=== PATIENT | female | born 2000 | race Caucasian/White ===

== ENCOUNTER 2023-09-02 21:21 | Emergency (ER) | payer BC, SELFPAY ==
--- NOTE | 2023-09-02 21:15 | ECG_ITS ---
APPROVED REPORT Exam: Resting ECG HR:95 bpm ECG Measurements Heart Rate [address] 156 P 72 QRSd 88 QRS 90 QT 332 T 8 QTc 385 Conclusion SINUS RHYTHM NONSPECIFIC T-WAVE ABNORMALITY BORDERLINE ECG Electronically signed by : SHANE JERRY, 09/03/2023 16:37:43
[2023-09-02 21:22] VITALS: BP 113/75; PULSE 97; RESP 20; TEMP 36.9; O2SAT 99; BMI 18.9
--- NOTE | 2023-09-02 21:39 | XR_ITS ---
PROCEDURE INFORMATION: Exam: XR Chest Exam date and time: 09/02/2023 10:20 PM Age: 23 years old Clinical indication: Pain; Chest pressure; Additional info: Cp TECHNIQUE: Imaging protocol: Radiologic exam of the chest. Views: 1 view. COMPARISON: No relevant prior studies available. FINDINGS: Lungs: Unremarkable. No consolidation. Pleural spaces: Unremarkable. No pleural effusion. No pneumothorax. Heart/Mediastinum: Unremarkable. No cardiomegaly. Vasculature: Unremarkable. Bones/joints: Unremarkable. IMPRESSION: No acute findings.
--- NOTE | 2023-09-02 21:39 | CT_ITS ---
PROCEDURE INFORMATION: Exam: CT Abdomen And Pelvis With Contrast Exam date and time: 09/02/2023 10:29 PM Age: 23 years old Clinical indication: Abdominal pain; Additional info: Chronic b/l upper quadrant pain TECHNIQUE: Imaging protocol: Computed tomography of the abdomen and pelvis with contrast. Radiation optimization: All CT scans at this facility use at least one of these dose optimization techniques: automated exposure control; mA and/or kV adjustment per patient size (includes targeted exams where dose is matched to clinical indication); or iterative reconstruction. Contrast material: ISOVUE; Contrast volume: 75 ml; Contrast route: IV; COMPARISON: CR XR CHEST PORTABLE 09/02/2023 10:20 PM FINDINGS: Lungs: No acute finding. Liver: Normal. No mass. Gallbladder and bile ducts: Normal. No calcified stones. No ductal dilation. Pancreas: Normal. No ductal dilation. Spleen: Normal. No splenomegaly. Adrenal glands: Normal. No mass. Kidneys and ureters: Normal. No hydronephrosis. Stomach and bowel: Unremarkable. No obstruction. No mucosal thickening. Appendix: No evidence of appendicitis. Intraperitoneal space: Unremarkable. No free air. No significant fluid collection. Vasculature: Unremarkable. No abdominal aortic aneurysm. Lymph nodes: Unremarkable. No enlarged lymph nodes. Urinary bladder: Unremarkable as visualized. Reproductive: There is a 2.6 cm left ovarian follicle/cyst. Bones/joints: Unremarkable. No acute fracture. Soft tissues: Unremarkable. IMPRESSION: There is no acute process evident within the abdomen or pelvis.
--- NOTE | 2023-09-02 21:42 | [facility].EDGENADL ---
Discharge Plan Disposition Chief Complaint: Abdominal Pain Referrals Follow up/Referrals: Provider,Referral, MD [Primary Care Provider] - See instructions Activity Restrictions/Add. Instructions Additional Instructions/Restrictions: At this time it was felt you are safe to be discharged home and all emergent causes have been ruled out currently. If new or worsening symptoms please do not hesitate to return the emergency department. If symptoms persist please follow-up with your family doctor as you are able for continued evaluation. Clinical Impressions Clinical Impression: Abdominal pain, Chest pain Instructions Patient Instructions: DI for Acute Abdominal Pain Discharge ED Provider: Luis Gonzales General Adult HPI General Chief complaint: Abdominal Pain Stated complaint: chest pain Time Seen by Provider: 09/02/23 21:23 Mode of Arrival: Ambulatory Source of Information: Patient Limitations: No Limitations Description of Symptoms (Recalled from ER Triage Doc. by RN): Pt states she's having kidney pain and chest wall pain. Pt states this has been going on and she's been to [facility] and PCP to get treated and has not gotten answers. Pt is A&O*4 at this time. History of Present Illness HPI narrative: Patient is a 23-year-old female with no pertinent past medical history presents emergency department for evaluation of pain. She has had bilateral upper quadrant pain which she attributes to her kidneys over the last 2 months, waxes and wanes, not particularly modifiable, moderate to severe in intensity intermittently. She also has chest pain that is substernal, worse at night. Last menstrual period within 1 month. Due to persistent symptoms she presents here for continued evaluation. Related Data Allergies Allergy/AdvReac Type Severity Reaction Status Date / Time amoxicillin Allergy Verified 09/02/23 21:45 [facility] Disclaimer: The information contained in this section may have been updated after the patient was seen, as this information can be updated by other users. Social History Smoking Status: Never smoker alcohol intake: never current occupational status: other Travel in the last 8 weeks: None ROS Obtained: Yes Systems reviewed as appropriate & no additional complaints except as documented Physical Exam General General appearance: alert and in no apparent distress Head Head exam: atraumatic and normocephalic Eye Eye exam: Present PERRL ENT ENT exam: Present mucous membranes moist Neck Neck exam: Present normal inspection Chest Chest inspection: Present normal inspection and symmetric chest wall rise Respiratory Respiratory exam: Present normal lung sounds bilaterally; Absent respiratory distress Cardiovascular Cardiovascular exam: Present normal rhythm and tachycardia Abdominal Exam Abdominal exam: Present soft; Absent tenderness, guarding or rebound Extremities Exam Extremities exam: Present normal inspection Neurological Exam Neurological exam: Present alert Psychiatric Psychiatric exam: Present normal affect Skin Skin exam: Present warm and dry Medical Decision Making Roberto Inquiry Pt receiving controlled substance: No Vital Signs: 09/02/23 21:22 Temperature 98.5 F Temperature Source Oral Pulse Rate [Left] 97 H Respiratory Rate 20 Blood Pressure [Right Arm] 113/75 Blood Pressure Mean [Right Arm] 87 02 Sat by Pulse Oximetry 99 Oxygen Delivery Method Room Air Lab Data Lab Results 09/02/23 21:29: WBC 3.2 L, RBC 4.46, Hgb 14.0, Hct 42.6, MCV 95.4, MCH 31.3 H, MCHC 32.8, RDW 13.7, Plt Count 196, MPV 7.9, Neut % (Auto) 54.0, Lymph % (Auto) 35.5, [place] % (Auto) 7.4, Eos % (Auto) 2.3, Baso % (Auto) 0.8, Neut # (Auto) 1.7 L, Lymph # (Auto) 1.1, [place] # (Auto) 0.2, Eos # (Auto) 0.1, Baso # (Auto) 0.0, D-Dimer 0.39, Sodium 140, Potassium 4.0, Chloride 102, Carbon Dioxide 29, Anion Gap 13.0, BUN 17, Creatinine 0.80, Estimated Creat Clear 89, Estimated GFR 89, Est GFR ( Amer) 108, Glucose 113 H, Calcium 9.5, Total Bilirubin 0.8, AST 32, ALT 17, Alkaline Phosphatase 38, Troponin I < 0.01, Total Protein 7.6, Albumin 4.7, Globulin 2.9, Albumin/Globulin Ratio 1.6, Lipase 161, Serum HCG, Qual Negative 09/02/23 21:52: Urine Color Yellow, Urine Appearance Clear, Urine pH 7.0, Ur Specific Roy 1.025, Urine Protein Negative, Urine Glucose (UA) Negative, Urine Ketones Negative, Urine Blood Negative, Urine Nitrate Negative, Urine Bilirubin Negative, Urine Urobilinogen 0.2, Ur Leukocyte Esterase Negative, Urine WBC 5-10, Ur Squamous Epith Cells 3-5, Urine Bacteria 3+, Urine Mucus 1+ 09/02/23 21:29 09/02/23 21:29 Orders (Tests/Meds): ED MEDICATIONS Generic Name Dose Route Start Last Admin Trade Name Bill PRN Reason Stop Dose Admin Sodium Chloride 10 ml 09/02/23 22:32 09/02/23 22:33 Sodium Chloride 0.9% 10ml Syr (Rad Only) IV 10/02/23 22:31 10 ml NEEDED PRN Administration Maintain IV Site Discontinued Medications Generic Name Dose Route Start Last Admin Trade Name Frerobert PRN Reason Stop Dose Admin Acetaminophen 650 mg 09/02/23 21:44 09/02/23 21:53 Acetaminophen 325mg Tab PO 09/02/23 21:45 650 mg ONCE ONE Administration Belladonna Alkaloids 60 ml 09/02/23 21:44 09/02/23 21:53 Belladonna Alkaloids 60 Ml Ml PO 09/02/23 21:45 60 ml ONCE ONE Administration Lactated Ringer's 1,000 mls @ 999 mls/hr 09/02/23 21:39 09/02/23 21:53 Lactated Ringer's 1000 Ml Bag IV 09/02/23 22:39 999 mls/hr .Q1H1M ONE Administration Iopamidol 75 ml 09/02/23 22:32 09/02/23 22:33 Iopamidol-370 (76%);100ml Bottle IV 09/02/23 22:33 75 ml ONCE ONE Administration Ketorolac Tromethamine 30 mg 09/02/23 21:44 09/02/23 21:53 Ketorolac 30mg/Ml Vial IV 09/02/23 21:45 30 mg ONCE ONE Administration ORDERS Category Date Time Status CT abdomen pelvis w con Stat Cat Scan 09/02/23 21:39 Completed CXR --portable [XR chest portable] Stat Exams 09/02/23 21:39 Completed CBC w/Auto Diff [Complete Blood Count Auto Diff] Stat Lab 09/02/23 21:29 Completed CMP [Comprehensive Metabolic Panel] Stat Lab 09/02/23 21:29 Completed D-Dimer Stat Lab 09/02/23 21:29 Completed HCG Qualitative, Serum Stat Lab 09/02/23 21:29 Completed Lipase Stat Lab 09/02/23 21:29 Completed Trop I [Troponin I] Stat Lab 09/02/23 21:29 Completed Troponin I Q3H Lab 09/03/23 00:45 Ordered Troponin I Q3H Lab 09/03/23 03:45 Ordered UA [Urinalysis and Microscopic] Stat Lab 09/02/23 21:52 Completed Urine Culture Stat Micro 09/02/23 21:52 Received ECG Data Tracing #1: Independently interpreted by me, rate is 95, rhythm is regular, axis is borderline rightward deviated no ST elevation in anatomical QS leads, QTc 385. HEART Score History (anamnesis): Slightly suspicious ECG: Normal Age: <45 years Risk factors: No known risk factors Troponin: </= normal limit HEART Score: 0 Medical Decision Narrative: In summary patient is a 23-year-old female with past medical history described above presents emergency department for evaluation of bilateral upper quadrant abdominal pain, intermittent chest pain. Patient is hemodynamically stable nontoxic-appearing upon arrival, afebrile, borderline tachycardic. Lungs are clear to auscultation. Differential diagnosis includes renal mass, urinary tract infection, cardiac chest pain, pancreatitis, pulmonary embolism, among others. Workup will be conducted with hematologic labs, urinalysis, hCG, troponin, D-dimer, chest x-ray, CT abdomen pelvis IV contrast. If interventions include crystalloid bolus, Tylenol, Toradol. Initial workup reviewed by me, hematologic labs are nonactionable, no significant leukocytosis or anemia, D-dimer rules out pulmonary embolism per [place], no electrolyte abnormality or TOSHA, initial troponin undetectably low, hCG negative. Urinalysis is somewhat equivocal however not consistent with infection and patient has no significant symptomatic dysuria therefore treatment will be deferred. Upon repeat evaluation patient remained hemodynamically stable, tolerating p.o. at bedside. Given this patient is appropriate for discharge at this time we will continue to follow-up on an outpatient basis. Critical Care Critical Care Time Critical Care Time: No
[2023-09-02 21:49] LABS: Basophils % 0.8 % (0.1-2.0); Eosinophils # 0.1 K/mm3 (0.0-0.4); Eosinophils % 2.3 % (0.1-12.0); Hematocrit 42.6 % (37.0-47.0); Lymphocytes # 1.1 K/mm3 (0.7-4.5); Lymphocytes % 35.5 % (10-50); Mean Corpuscular HGB Conc 32.8 g/dL (31.8-35.4); Mean Corpuscular Hemoglobin 31.3 pg (27.0-31.2); Mean Corpuscular Volume 95.4 fl (81-99); Mean Platelet Volume 7.9 fl (7.4-10.4); Monocytes # 0.2 K/mm3 (0.1-1.0); Monocytes % 7.4 % (1.7-9.3); Neutrophils # 1.7 K/mm3 (1.8-7.8); Platelet Count 196 K/mm3 (142-424); Red Blood Count 4.46 M/mm3 (4.20-5.40); Red Cell Distribution Width 13.7 % (11.5-17.5); White Blood Count 3.2 K/mm3 (4.8-10.8)
[2023-09-02] MEDS: ACETAMINOPHEN 325MG TAB 650 MG PO (21:53)
[2023-09-02] MEDS: LACTATED RINGERS 1000ML 1,000 ML 999 ML IV (21:53)
[2023-09-02] MEDS: BELLADONNA ALKALOIDS 60 ML ML PO (21:53)
[2023-09-02] MEDS: KETOROLAC 30MG/ML VIAL 30 MG IV (21:53)
[2023-09-02 21:57] LABS: Alanine Aminotransferase 17 U/L (12-78); Albumin Level 4.7 g/dl (3.5-5.0); Albumin/Globulin Ratio 1.6 (1.1-1.8); Alkaline Phosphatase 38 U/L (38-126); Aspartate Amino Transferase 32 U/L (14-36); Bilirubin,Total 0.8 mg/dl (0.2-1.3); Blood Urea Nitrogen 17 mg/dl (7-17); Calcium 9.5 mg/dl (8.4-10.2); Carbon Dioxide 29 mmol/L (22.0-30.0); Chloride 102 mmol/L (98-107); Creatinine Clearance Estimated 89 mL/min (50-200); Estimated Glomerular Filt Rate 89 ml/min (>60); GFR (African American) 108 ML/MIN (>60); Globulin 2.9 g/dL (1.3-3.2); Glucose 113 mg/dl (74-100); Lipase 161 U/L (23-300); Sodium 140 mmol/L (136-145); Total Protein,Serum 7.6 g/dl (6.3-8.2)
[2023-09-02 22:03] LABS: Microscopic, Urine URINE MICROSCOPIC (MICROSCOPIC)
[2023-09-02 22:04] LABS: Appearance,Urine CLEAR (Clear); Blood, Urine Negative (Negative); Color,Urine YELLOW (Yellow); Glucose,Urine (UA) Negative (Negative); Ketones,Urine Negative (Negative); Leukocyte Esterase,Urine Negative (Negative); Nitrate,Urine Negative (Negative); Protein,Urine Negative (Negative); Specific Gravity, Urine 1.025 (1.005-1.030); Urobilinogen,Urine 0.2 EU/dl (0.2)
[2023-09-02 22:04] LABS: D-Dimer 0.39 ug/mL (0.0-0.5); HCG Qualitative, Serum Negative (Negative)
[2023-09-02 22:07] LABS: Bilirubin,Urine Negative (Negative)
[2023-09-02 22:12] LABS: Troponin I < 0.01 ng/ml (0.00-0.034)
[2023-09-02 22:18] LABS: Bacteria,Urine 3+ /lpf
[2023-09-02 22:19] LABS: Mucus,Urine 1+ /lpf
[2023-09-02] MEDS: IOPAMIDOL-370 (76%);100ML BOTTLE 75 ML IV (22:33)
[2023-09-02] MEDS: SODIUM CHLORIDE 0.9% 10ML SYR (RAD ONLY) 10 ML IV (22:33)
[2023-09-02 23:00] VITALS: BP 107/63; PULSE 80; O2SAT 100
[2023-09-02 23:30] VITALS: BP 104/77; PULSE 88; O2SAT 99
[2023-09-02 23:34] VITALS: BP 104/77; PULSE 86; RESP 20; TEMP 36.8; O2SAT 99
== END 2023-09-02 23:43 | disposition home or self-care (01) ==
PROVIDERS: Emergency Provider Emergency Medicine
DX: R07.9 Chest pain, unspecified (principal); R10.10 Upper abdominal pain, unspecified; R30.0 Dysuria
CPT/HCPCS: 71045; 74177; 80053; 81001; 83690; 84484; 84703; 85025; 85378; 87086; 93005; 96361; 96374; 99285; Q9967